=== PATIENT | male | born 1975 | race Caucasian/White ===

== ENCOUNTER 2017-02-12 15:52 | Emergency (ER) | payer OTHER, MEDICARE ==
[2017-02-12 17:12] LABS: BASOPHILS 0.5 % (0-2); EOSINOPHILS 3.1 % (0-7); HEMOGLOBIN 16.1 g/dL (13.5-17.5); IMMATURE GRANULOCYTES 0.2 % (0-5); LYMPHOCYTES 22.6 % (15-50); MCH 32.9 pg (26.0-34.0); MCHC 34.3 g/dL (31.0-37.0); MCV 95.9 fL (80.0-100.0); MEAN PLATELET VOLUME 10.6 fL (7.4-10.4); NEUTROPHILS 64.6 % (40-80); PLATELET COUNT 188 10x3/uL (130-400); WBC 12.7 10x3/uL (4.8-10.8)
[2017-02-12 17:35] LABS: ALBUMIN 3.7 g/dL (3.4-5.0); ALKALINE PHOSPHATASE 80 U/L (46-116); ALT (SGPT) 38 U/L (10-68); BILIRUBIN - TOTAL 0.35 mg/dL (0.2-1.3); CALC OSMOLALITY 276 mosm/kg (275-300); CALCIUM 8.8 mg/dL (8.5-10.1); CARBON DIOXIDE 26.7 mmol/L (21.0-32.0); CHLORIDE - SERUM 105 mmol/L (98-107); CREATININE - SERUM 0.9 mg/dL (0.6-1.3); GLUCOSE 100 mg/dL (74-106); POTASSIUM - SERUM 3.7 mmol/L (3.5-5.1); PROTEIN - SERUM 7.4 g/dL (6.4-8.2); SODIUM 139 mmol/L (136-145); UREA NITROGEN 11 mg/dL (7-18); eGFR NON AFRICAN AMERICAN > 90 mL/min (90-120)
[2017-02-12 17:40] LABS: TROPONIN-I < 0.017 ng/mL (0.000-0.060)
== END 2017-02-12 19:05 | disposition home or self-care (01) ==
LOC: D.ER 15:52
PROVIDERS: Emergency Medicine
DX: S46.912A Strain of unspecified muscle, fascia and tendon at shoulder and upper arm level, left arm, initial encounter (principal); X58.XXXA Exposure to other specified factors, initial encounter; Y93.89 Activity, other specified; Y92.89 Other specified places as the place of occurrence of the external cause; F17.200 Nicotine dependence, unspecified, uncomplicated

== ENCOUNTER → 2017-10-17 12:34 | Outpatient (CLI) | payer MEDICARE | END | disposition home or self-care (01) | LOC: D.LAB 12:34 | DX: N41.9 Inflammatory disease of prostate, unspecified (principal); Z80.42 Family history of malignant neoplasm of prostate ==

== ENCOUNTER → 2017-10-22 08:19 | Outpatient (CLI) | payer MEDICARE | END | disposition home or self-care (01) | LOC: D.CT 08:19 | DX: R31.9 Hematuria, unspecified (principal); Z87.442 Personal history of urinary calculi ==

== ENCOUNTER → 2017-10-23 11:10 | Outpatient (CLI) | payer MEDICARE | END | disposition home or self-care (01) | LOC: D.US 11:00 | DX: N28.9 Disorder of kidney and ureter, unspecified (principal) ==

== ENCOUNTER → 2017-11-05 08:12 | Outpatient (CLI) | payer MEDICARE | END | disposition home or self-care (01) | LOC: D.MRI 08:12 | DX: N28.1 Cyst of kidney, acquired (principal) ==

== ENCOUNTER 2017-12-18 05:56 | Outpatient (CLI) | payer MEDICARE ==
[2017-12-18 07:47] LABS: BASOPHILS 0.7 % (0-2); EOSINOPHILS 4.8 % (0-7); HEMATOCRIT 43.1 % (42.0-54.0); HEMOGLOBIN 15.1 g/dL (13.5-17.5); IMMATURE GRANULOCYTES 0.2 % (0-5); LYMPHOCYTES 34.7 % (15-50); MCH 32.8 pg (26.0-34.0); MCV 93.7 fL (80.0-100.0); MEAN PLATELET VOLUME 10.6 fL (7.4-10.4); MONOCYTES 12.1 % (2-11); NEUTROPHILS 47.5 % (40-80); PLATELET COUNT 162 10x3/uL (130-400); RDW 12.3 % (11.5-14.5); WBC 5.5 10x3/uL (4.8-10.8)
[2017-12-18 08:03] LABS: CALC OSMOLALITY 279 mosm/kg (275-300); CALCIUM 8.5 mg/dL (8.5-10.1); CARBON DIOXIDE 24.1 mmol/L (21.0-32.0); CHLORIDE - SERUM 105 mmol/L (98-107); CREATININE - SERUM 0.8 mg/dL (0.6-1.3); GLUCOSE 86 mg/dL (74-106); INR 1.06 (0.85-1.17); POTASSIUM - SERUM 3.9 mmol/L (3.5-5.1); PROTIME 13.4 SECONDS (11.6-15.0); SODIUM 142 mmol/L (136-145); UREA NITROGEN 7 mg/dL (7-18); eGFR NON AFRICAN AMERICAN > 90 mL/min (90-120)
[2017-12-18 08:04] LABS: APTT 25.4 SECONDS (22.8-39.4)
== END 2017-12-18 12:31 ==
LOC: D.SP 05:56 → D.RAD 08:00 → D.SP 08:00
PROVIDERS: Radiology Diagnostic Radiology
DX: N28.89 Other specified disorders of kidney and ureter (principal); Z01.812 Encounter for preprocedural laboratory examination

== ENCOUNTER 2018-02-19 09:53 | Emergency (ER) | payer MEDICARE ==
[~2018-02-19] VITALS: Ht 177.8 cm; Wt 79.5 kg
[2018-02-19 09:57] VITALS: BP 156/82; Ht 177.8 cm; Wt 79.5 kg
[2018-02-19 10:19] LABS: BASOPHILS 0.4 % (0-2); HEMATOCRIT 48.4 % (42.0-54.0); HEMOGLOBIN 17.1 g/dL (13.5-17.5); IMMATURE GRANULOCYTES 0.4 % (0-5); LYMPHOCYTES 20.7 % (15-50); MCH 33.7 pg (26.0-34.0); MCHC 35.3 g/dL (31.0-37.0); MCV 95.3 fL (80.0-100.0); MEAN PLATELET VOLUME 10.1 fL (7.4-10.4); MONOCYTES 10.1 % (2-11); NEUTROPHILS 66.4 % (40-80); PLATELET COUNT 159 10x3/uL (130-400); RBC 5.08 10x6/uL (4.20-6.10); RDW 12.1 % (11.5-14.5); WBC 10.9 10x3/uL (4.8-10.8)
[2018-02-19 10:33] LABS: ALBUMIN 3.8 g/dL (3.4-5.0); ALKALINE PHOSPHATASE 74 U/L (46-116); ALT (SGPT) 44 U/L (10-68); BILIRUBIN - TOTAL 0.43 mg/dL (0.2-1.3); CALC OSMOLALITY 280 mosm/kg (275-300); CALCIUM 8.6 mg/dL (8.5-10.1); CHLORIDE - SERUM 107 mmol/L (98-107); GLUCOSE 99 mg/dL (74-106); POTASSIUM - SERUM 3.7 mmol/L (3.5-5.1); PROTEIN - SERUM 7.4 g/dL (6.4-8.2); SODIUM 142 mmol/L (136-145); UREA NITROGEN 6 mg/dL (7-18); eGFR NON AFRICAN AMERICAN 87 mL/min (90-120)
[2018-02-19] MEDS ORDERED: TYLENOL W/CODEI1 TAB PO (10:45)
[2018-02-19] MEDS ORDERED: BACTRIM DS TABL1 TAB PO (10:45)
== END 2018-02-19 12:10 | disposition home or self-care (01) ==
LOC: D.ER 09:53
PROVIDERS: Family Medicine
DX: S62.524B Nondisplaced fracture of distal phalanx of right thumb, initial encounter for open fracture (principal); W22.8XXA Striking against or struck by other objects, initial encounter; Y93.89 Activity, other specified; Y92.019 Unspecified place in single-family (private) house as the place of occurrence of the external cause; F17.200 Nicotine dependence, unspecified, uncomplicated

== ENCOUNTER → 2018-04-02 13:41 | Outpatient (CLI) | payer MEDICARE ==
[2018-02-19 09:57] VITALS: BMI 25.1
[~2018-04-02 13:41] MED LIST: BACTRIM DS TABL1 TAB PO; TYLENOL W/CODEI1 TAB PO
== END | disposition home or self-care (01) ==
LOC: D.CT 13:41
DX: N28.89 Other specified disorders of kidney and ureter (principal)

== ENCOUNTER 2018-06-20 12:58 | Emergency (ER) | payer MEDICARE ==
[~2018-06-20] VITALS: Ht 177.8 cm; Wt 80.9 kg
[2018-06-20 13:13] VITALS: Ht 177.8 cm; Wt 80.9 kg
[2018-06-20] MEDS ORDERED: VOLTAREN75 MG PO (14:40)
[2018-06-20 15:11] VITALS: BP 122/72
== END 2018-06-20 15:12 | disposition home or self-care (01) ==
LOC: D.ER 12:58
DX: R51 Headache (principal); H53.9 Unspecified visual disturbance; F17.200 Nicotine dependence, unspecified, uncomplicated; R00.0 Tachycardia, unspecified

== ENCOUNTER 2018-10-20 21:03 | Emergency (ER) | payer MEDICARE ==
[~2018-10-20] VITALS: Ht 177.8 cm; Wt 77.3 kg
[~2018-10-20 21:03] MED LIST changes: +VOLTAREN75 MG PO
[2018-10-20 21:27] VITALS: Ht 177.8 cm; Wt 77.3 kg
[2018-10-20] MEDS ORDERED: ZOFRAN ODT4 MG/UDTAB PO (22:30)
[2018-10-20] MEDS ORDERED: VOLTAREN75 MG PO (22:30)
[2018-10-20] MEDS ORDERED: ZPAK PO (22:30)
[2018-10-20] MEDS ORDERED: TAMIFLU75 MG PO (22:30)
[2018-10-20 22:36] VITALS: BP 113/74
== END 2018-10-20 22:43 | disposition home or self-care (01) ==
LOC: D.ER 21:03
DX: J09.X2 Influenza due to identified novel influenza A virus with other respiratory manifestations (principal); R50.9 Fever, unspecified; R05 Cough; R09.89 Other specified symptoms and signs involving the circulatory and respiratory systems